=== PATIENT | female | born 1960 | race Caucasian/White ===

== ENCOUNTER 2017-01-14 12:39 | Day surgery (SDC) | payer BC ==
[2017-01-10 12:49] LABS: HEMATOCRIT 39.8 % (36.0-48.0); HEMOGLOBIN 13.7 g/dL (12.0-16.0)
--- NOTE | ~2017-01-14 | OP ---
Record Of Operation [facility] [address] [place]. [address] NAME: CHASE JONES : 58 STATUS : REG [facility] [place] PAT#: [id number] AGE: 57 ADM/REG DATE : 01/14/17 MR#: [id number] REPORT SERV DATE: 01/14/17 DICTATED BY: ASIA ARRIETA DATE: 01/14/17 REPORT STATUS : Draft TRANSCRIBED BY: MODErnestine DATE: 01/14/17 DATE OF PROCEDURE: 01/14/2017 PREOPERATIVE DIAGNOSES: 1. Left dorsal wrist ganglion cyst. 2. Left thumb carpometacarpal arthritis. 3. Left wrist triangular fibrocartilage complex and scapholunate ligament tears. PROCEDURES: 1. Left dorsal wrist ganglion cyst excision. 2. Left thumb excision of trapezium, ligament reconstruction, and tendon interpositional arthroplasty using the FCR tendon. 3. Left wrist steroid injection using 40 mg of Depo-Medrol, 1 mL of Marcaine. SURGEON: Asia Arrieta M.D. BREADING MACHINE TENDER: Mau Cowan. SPECIMENS: Removed none. ESTIMATED BLOOD LOSS: Less than 1 mL. COMPLICATIONS: None. DISPOSITION: The patient tolerated the procedure well and was brought to recovery room in stable condition. PROCEDURE NOTE: After regional block and pain pump catheter was administered by the Anesthesia Department in the preop holding area, the patient was brought to the operating room and placed in the supine position. After general anesthesia was administered, a pneumatic tourniquet was placed around the left proximal arm. The left upper extremity distal to the tourniquet was prepped and draped in the usual sterile manner. Surgical time- out was performed. All were in agreement. An Esmarch was then used to exsanguinate the extremity and tourniquet was inflated. Dorsal wrist ganglion cyst was excised by taking a 15-blade scalpel, making a 3 to 4 cm longitudinal incision overlying the dorsal wrist. After the incision was made, the ganglion cyst was identified, and care was taken to protect the neurovascular structures as well as tendons in the area. Blunt and sharp dissection was carried out around the ganglion cyst until its base was reached. The base emanated from the dorsal capsule and the ganglion cyst was excised, it's base was cauterized, and afterwards the wound was irrigated, and skin was later closed with deep and running Monocryl suture. Thumb CMC joint exposure was done via the Cowan approach. A 15-blade scalpel was used to make a longitudinal incision parallel to the thumb metacarpal bone just at the edge of the thenar muscle. The incision was started 1.5 to 2 cm proximal to the thumb MP joint, was Record Of Operation [facility] [address] [address] NAME: CHASE JONES : 58 STATUS : REG [facility]#: [id number] AGE: 57 ADM/REG DATE : 01/14/17 MR#: [id number] REPORT SERV DATE: 01/14/17 DICTATED BY: ASIA ARRIETA DATE: 01/14/17 REPORT STATUS : Draft TRANSCRIBED BY: LUIS DATE: 01/14/17 directed parallel to the thumb metacarpal bone and to it's base, at which point, it was moved both ulnarly and volarly onto the volar wrist crease. After the skin was incised, blunt and sharp dissection was carried out taking care to protect sensory branches in the region. The thenar muscle was then lifted off the metacarpal base to reveal the thumb CMC joint. A 15-blade scalpel was used to inside the joint and periosteal dissection was carried out around the portion of the trapezium bone. The trapezium bone was then cut in small pieces with an osteotome and mallet and a rongeur was used to remove the pieces taking care to protect the FCR tendon. After the trapezium bone was removed, the attention was then directed to the harvesting the FCR tendon to be used for ligament reconstruction and interpositional arthroplasty. The flexor tendon was put on traction and the tendon course was noted in the mid forearm. A horizontal incision was made overlying the origin of the FCR tendon in the mid forearm and blunt dissection was carried out into the tendon muscle belly interface was met. Afterwards, the tendon was carefully incised and then dissected away from the muscles. The tendon was put on traction from the incision used to remove the trapezium bone. By doing so, the tendon was withdrawn distally, but its insertion into the index finger metacarpal base was still kept intact. The ligament reconstruction portion of the surgery was carried out by making a hole into the metacarpal base at its most volar-ulnar aspect. The hole with a 4 mm bur was then directed into the shaft and it exited the metacarpal bone on the dorsal aspect some 1.5 to 2 cm distal to the most proximal portion of dorsal metacarpal bone. The tendon was passed then from volar-ulnar proximal to radial dorsal distal. The tendon was then gathered and pierced through the dorsal capsule of the thumb CMC joint and the tendon was then wrapped around itself and put on tension. This construct was then sutured in place with nonabsorbable suture, thus recreating the ligament reconstruction portion of the surgery. The interpositional arthroplasty portion of the surgery was completed by taking the FCR tendon, wrapping it up into a ball and tied again in place with the rest of the nonabsorbable #2 FiberWire. The capsule was then closed with Vicryl suture and the thenar muscle was tacked back to its normal position using absorbable Vicryl suture. The wound was irrigated and skin was closed with deep and running Monocryl suture. The TFCC area was then injected with solution containing 40 mg of Depo-Medrol and 1 mL of Marcaine. The volar incision on the forearm was also closed with Monocryl suture and in a similar subcutaneous manner and a sterile dressing and thumb spica splint was applied. Tourniquet was released. The patient's arm was placed in a sling, and the patient was taken out of general anesthesia, and brought to recovery room in stable condition. DIO/LUIS Asia Arrieta M.D. Record Of Operation [address] [address] NAME: CHASE JONES : 58 STATUS : REG [facility] [place] PAT#: [id number] AGE: 57 ADM/REG DATE : 01/14/17 MR#: [id number] REPORT SERV DATE: 01/14/17 DICTATED BY: ASIA ARRIETA DATE: 01/14/17 REPORT STATUS : Draft TRANSCRIBED BY: LUIS DATE: 01/14/17 / [id number] CC: López Thayer M.D.
[~2017-01-14 12:39] MED LIST: ACET500CAP PO; ADVIL PO; AMIT25 PO; ATV.5 PO; BEN25 PO; CHLORTAB; D 5000 PO; LAMICTAL10 PO; LEVOTHYROXIN25 MCG PO; MEVACOR PO; NEUPRO1 EAC2 TOP; NEUR300 PO; PROTONIX PO; SIN25 PO; ZANAFLEX2 MG PO
== END 2017-01-14 18:57 | disposition home or self-care (01) ==
LOC: SDC 12:39
PROVIDERS: Orthopaedic Surgery Hand Surgery
PROC: 0RRT07Z Replacement of Left Carpometacarpal Joint with Autologous Tissue Substitute, Open Approach (ICD-10-PCS; 2017-01-14)
PROC: 0LB60ZZ Excision of Left Lower Arm and Wrist Tendon, Open Approach (ICD-10-PCS; principal; 2017-01-14 15:00)
PROC: 3E0U33Z Introduction of Anti-inflammatory into Joints, Percutaneous Approach (ICD-10-PCS; 2017-01-14 15:00)
DX: M67.432 Ganglion, left wrist (principal); M18.12 Unilateral primary osteoarthritis of first carpometacarpal joint, left hand; E03.9 Hypothyroidism, unspecified; E78.5 Hyperlipidemia, unspecified; E78.00 Pure hypercholesterolemia, unspecified; K21.9 Gastro-esophageal reflux disease without esophagitis; G20 Parkinson's disease; M79.7 Fibromyalgia; F41.9 Anxiety disorder, unspecified; F31.9 Bipolar disorder, unspecified; F41.0 Panic disorder [episodic paroxysmal anxiety]; F17.210 Nicotine dependence, cigarettes, uncomplicated; Z86.718 Personal history of other venous thrombosis and embolism; Z88.0 Allergy status to penicillin; Z88.1 Allergy status to other antibiotic agents; Z88.5 Allergy status to narcotic agent; Z88.6 Allergy status to analgesic agent; Z79.899 Other long term (current) drug therapy; Z90.89 Acquired absence of other organs; Z90.710 Acquired absence of both cervix and uterus; Z98.890 Other specified postprocedural states
CPT/HCPCS: 85014; 85018; 93005; J1030; J2250; J2405; J2795; J3010; J3370